=== PATIENT | male | born 2000 | race African-American/Black ===

== ENCOUNTER 2022-08-07 22:33 | Inpatient (IN) ==
--- NOTE | 2022-08-07 23:18 | Emergency Department Note ---
Impression & Plan Chest pain, Palpitations, Elevated CK, Elevated transaminase level ED Provider Note ED Provider Note NAME: JUANCARLOS QUICK AGE:21 SEX: Male : 2000 ARRIVES VIA: private vehicle INFORMANT: Patient ED PROVIDER(s): Taylor Leo DO CHIEF COMPLAINT: chest pain HPI: This is a 21-year-old male presents emergency department due to concern for worsening chest pain. Patient states he was seen and evaluated here last night, had an EKG performed, was given an injection of an anti-inflammatory and discharged home. He states he was told it was likely musculoskeletal as he had recent leg started going back to the gym again the beginning of the week. He states he was initially sore "everywhere" the beginning of the week however all of his other areas of muscular soreness resolved except for the left chest wall. He states he feels left chest wall is slightly bigger compared to the right and it is most tender along the edge of his sternum. Patient states yesterday the pain was milder and dull, today felt worse, more severe, and he had 1 episode where it radiated into his back in the area of his left scapula. Patient denies any radiation down the arm or up into the neck. He denies accompanying shortness of breath. Patient denies any recent fevers, chills, cough or other URI symptoms over the last month. No recent leg swelling, change in urine or stools, nausea or vomiting, or abdominal pain. PAST MEDICAL HISTORY:See Below PAST SURGICAL HISTORY:See Below FAMILY HISTORY:See Below SOCIAL HISTORY:See Below HOME MEDICATIONS:See Below ALLERGIES:See Below VITALS:See Below PHYSICAL EXAMINATION: GENERAL: alert, well appearing, well nourished, no distress, non-toxic EYE EXAM: normal conjunctiva, PERRL and EOM's grossly intact OROPHARYNX: no exudate, no erythema, lips, buccal mucosa, and tongue normal and mucous membranes are moist NECK: supple, no nuchal rigidity, no adenopathy, non-tender LUNGS: Clear to auscultation. Normal chest wall mechanics, no w/r/r HEART: no murmurs, S1 normal and S2 normal ABDOMEN: abdomen soft, non-tender, normo-active bowel sounds, no masses, no rebound or guarding. BACK: Back is symmetrical on inspection and there is no deformity, no midline tenderness, no CVA tenderness. SKIN: no rashes, petechiae, orbruising UPPER EXTREMITIES: upper extremities are grossly normal. FROM, nml pulses b/l. LOWER EXTREMITIES: No pitting edema. FROM, nml pulses b/l. NEURO EXAM: Normal sensorium, cranial nerves II-XII grossly intact, normal speech, no facial droop,nogross weakness of arms, no gross weakness of legs. Gross sensation intact. No ataxia. Vital Signs: reviewed and remarkable Differential Diagnosis: Differential diagnoses includes but is not limited to acute coronary syndrome, pericarditis, pulmonary embolus, aortic dissection, pneumonia, pneumothorax, musculoskeletal, shingles, esophageal. MEDICAL DECISION MAKING: Heart score 0 This is a 21-year-old male presents emergency department due to concern for worsening chest pain and intermittent palpitations. Labs drawn and sent, IV established, EKG performed and interpreted by me, and chest x-ray obtained and interpreted by me also. Patient's initial troponin and D-dimer negative. EKG reassuring and chest x-ray reassuring. Bedside echo performed by me reassuring without any pericardial effusion or obvious wall motion abnormality. No ectopy or dysrhythmia noted on telemetry while monitored. Patient's initial CK found to be elevated, as were transaminases. The other labs are reassuring. Patient given additional IV fluids and CK rechecked. Repeat CK found to be markedly elevated despite normal renal function. No recent URI or illness per his report. Due to elevated CK with accompanying abnormal transaminases, case discussed with hospitalist for additional evaluation and management. Patient had no abdominal pain, no history of liver dysfunction. We discussed possible additional imaging of the liver if transaminases remain elevated. COVID test added as a precaution. Consultation(s): 0932: Discussed with Dr. Fowler, hospitalist team. ER Treatment Provided: See below 0115: Patient updated on results thus far. Bedside echo performed. US echo: A limited bedside echo was performed by me using ultrasound machine. No obvious pericardial effusion. No obvious wall motion abnormalities. Grossly normal EF noted with EPSS < 7. 0832: Updated patient on repeat CK levels and need for additional inpatient evaluation and monitoring. Diagnostics Interpreted By Me: -ECG: Normal sinus rhythm at 71, normal axis, normal QRS and QTc, no acute ST/T wave changes noted -Cardiac Monitoring: An order was placed for continuous cardiac monitoring. The monitor shows a rate of 68 with normal sinus rhythm. -Laboratory studies: As stated above and show below. -Imaging studies: Chest: A single view study of the chest was reviewed and was negative for cardiomegaly, focal infiltrate, effusion, pulmonary edema, or wide mediastinum. Triage Nursing Note Reviewed Prior/Outside Records Reviewed -reviewed prior EKG Procedures: [] Critical Care: [] Past Med/Surg History Medical History No acute medical problems Surgical History No pertinent past surgical history Social History Smoking Status: Never smoker Preferred Language: Samoan Feels Safe at Home: Yes Allergies Allergies Allergy/AdvReac Type Severity Reaction Status Date / Time No Known Allergies Allergy Verified 08/07/22 22:56 Home Meds Home Medications Medication Instructions Recorded Confirmed calcium carbonate 200 mg calcium 400 mg PO DIRECTED PRN 08/07/22 08/07/22 (500 mg) chewable tablet (Tums) HEARTBURN/INDIGESTION/GI UPSET Results & Data (ED) Vital Signs Vital Signs - 24 hr 08/07/22 22:37 08/08/22 00:51 08/08/22 01:36 Temperature 36.4 C L Temperature Source Temporal Artery Scan Pulse Rate 92 H Pulse Rate [Left Finger] 67 72 Pulse Rhythm [Left Finger] Pulse Strength [Left Finger] Respiratory Rate 18 18 18 Respiratory Effort / Characteristics Respiratory Depth Normal Respiratory Pattern Blood Pressure 159/102 H Blood Pressure [Right Arm] 134/86 133/87 Blood Pressure Mean 121 Blood Pressure Mean [Right Arm] 102 102 Blood Pressure Position [Right Arm] Lying Lying Pulse Oximetry 99 98 97 Oxygen Delivery Method Room Air Room Air Room Air Oxygen Flow Rate Sepsis Recent Fever Within 48 Hours No Sepsis New/Unexplained Change in Mental Status N/A Sepsis Action Taken by Nursing No Action Required 08/08/22 04:15 08/08/22 04:15 08/08/22 06:00 Temperature Temperature Source Pulse Rate Pulse Rate [Left Finger] 71 62 Pulse Rhythm [Left Finger] Regular Regular Pulse Strength [Left Finger] Normal Normal Respiratory Rate 18 16 Respiratory Effort / Characteristics Non-Labored Spontaneous Non-Labored Spontaneous Respiratory Depth Normal Normal Respiratory Pattern Regular Regular Blood Pressure Blood Pressure [Right Arm] 125/85 125/76 Blood Pressure Mean Blood Pressure Mean [Right Arm] 98 92 Blood Pressure Position [Right Arm] Semi-fowlers Semi-fowlers Pulse Oximetry 99 99 96 Oxygen Delivery Method Room Air Room Air Room Air Oxygen Flow Rate 0 Sepsis Recent Fever Within 48 Hours Sepsis New/Unexplained Change in Mental Status Sepsis Action Taken by Nursing Laboratory Data 08/07/22 23:50 08/07/22 23:50 Lab Results 08/07/22 08/07/22 08/07/22 Range/Units 23:50 23:50 23:50 WBC 6.44 (4.8-10.8) K/ul RBC 4.60 L (4.70-6.10) M/uL Hgb 14.9 (14.0-18.0) g/dl Hct 41.8 L (42.0-52.0) % MCV 90.9 (80.0-100.0) fL MCH 32.4 (25.0-34.0) pg MCHC 35.6 (32.0-36.0) g/dL RDW Std Deviation 37.2 (36.4-46.3) fL RDW Coeff of Estela 11.2 L (11.5-14.5) % Plt Count 159 (130-400) K/uL MPV 12.7 H (9.4-12.4) fL Immature Gran % (Auto) 0.2 % Neut % (Auto) 61.5 % Lymph % (Auto) 28.7 % [place] % (Auto) 8.5 % Eos % (Auto) 0.8 % Baso % (Auto) 0.3 % Neut # (Auto) 3.96 (1.40-6.50) K/uL Lymph # (Auto) 1.85 (1.2-3.4) K/uL [place] # (Auto) 0.55 (0.11-0.59) K/uL Eos # (Auto) 0.05 (0-0.50) K/uL Baso # (Auto) 0.02 (0-0.2) K/uL Immature Gran # (Auto) 0.01 (0.01-0.20) K/uL D-Dimer 200 (0-500) ug/L FEU Sodium 143 (136-145) mmol/L Potassium 4.1 (3.5-5.1) mmol/L Chloride 104 (98-107) mmol/L Carbon Dioxide 32 (21-32) mmol/L Anion Gap 7 (3-11) BUN 15 (6-23) mg/dl Creatinine 1.16 (0.6-1.4) mg/dl Est Cr Clr Drug Dosing 109.6 ml/min Est GFR ( Amer) 103.0 ml/min Est GFR (Non-Af Amer) 88.9 ml/min BUN/Creatinine Ratio 12.9 (10-20) Glucose 85 (70-99(Fasting)) mg/dl Calcium 9.5 (8.5-10.1) mg/dl Magnesium 2.3 (1.7-2.4) mg/dl Total Bilirubin 0.7 (0.2-1.0) mg/dl AST 516 H (13-39) U/L ALT 155 H (7-52) U/L Alkaline Phosphatase 59 (34-104) U/L Total Creatine Kinase 928 H (30-223) U/L Troponin I High Sens 9.4 (0-20) pg/ml Total Protein 7.3 (6.0-8.3) gm/dl Albumin 4.4 (3.4-5.0) gm/dl Globulin 2.9 (2.5-4.0) gm/dl Albumin/Globulin Ratio 1.5 (0.9-2) TSH (0.300-4.500) uIu/ml 08/07/22 08/08/22 Range/Units 23:50 04:49 WBC (4.8-10.8) K/ul RBC (4.70-6.10) M/uL Hgb (14.0-18.0) g/dl Hct (42.0-52.0) % MCV (80.0-100.0) fL MCH (25.0-34.0) pg MCHC (32.0-36.0) g/dL RDW Std Deviation (36.4-46.3) fL RDW Coeff of Estela (11.5-14.5) % Plt Count (130-400) K/uL MPV (9.4-12.4) fL Immature Gran % (Auto) % Neut % (Auto) % Lymph % (Auto) % [place] % (Auto) % Eos % (Auto) % Baso % (Auto) % Neut # (Auto) (1.40-6.50) K/uL Lymph # (Auto) (1.2-3.4) K/uL [place] # (Auto) (0.11-0.59) K/uL Eos # (Auto) (0-0.50) K/uL Baso # (Auto) (0-0.2) K/uL Immature Gran # (Auto) (0.01-0.20) K/uL D-Dimer (0-500) ug/L FEU Sodium (136-145) mmol/L Potassium (3.5-5.1) mmol/L Chloride (98-107) mmol/L Carbon Dioxide (21-32) mmol/L Anion Gap (3-11) BUN (6-23) mg/dl Creatinine (0.6-1.4) mg/dl Est Cr Clr Drug Dosing ml/min Est GFR ( Amer) ml/min Est GFR (Non-Af Amer) ml/min BUN/Creatinine Ratio (10-20) Glucose (70-99(Fasting)) mg/dl Calcium (8.5-10.1) mg/dl Magnesium (1.7-2.4) mg/dl Total Bilirubin (0.2-1.0) mg/dl AST (13-39) U/L ALT (7-52) U/L Alkaline Phosphatase (34-104) U/L Total Creatine Kinase 59152 H (30-223) U/L Troponin I High Sens (0-20) pg/ml Total Protein (6.0-8.3) gm/dl Albumin (3.4-5.0) gm/dl Globulin (2.5-4.0) gm/dl Albumin/Globulin Ratio (0.9-2) TSH 1.521 (0.300-4.500) uIu/ml Administered Medications Sodium Chloride (Nss 1000ml) 1,000 mls @ 150 mls/hr IV .Q6H40M SAMANTHA Stop: 09/07/22 08:44 Last Admin: 08/08/22 08:59 Dose: 125 mls/hr Documented By: BRISA Discontinued Medications Acetaminophen (Ofirmev) 1,000 mg in 100 mls @ 400 mls/hr IV NOW STA Stop: 08/08/22 01:33 Last Infusion: 08/08/22 02:04 Dose: 0 mls/hr Documented By: Admin: 08/08/22 01:36 Dose: 400 mls/hr Documented By: OZIEL Famotidine (Pepcid 20mg Iv Push) 20 mg in 5 mls @ 2.5 mls/min IV NOW STA Stop: 08/08/22 01:20 Last Admin: 08/08/22 01:36 Dose: 2.5 mls/min Documented By: OZIEL Sodium Chloride (Nss 1000ml) 1,000 mls @ 999 mls/hr IV .Q1H1M ONE Stop: 08/08/22 02:58 Last Infusion: 08/08/22 03:27 Dose: 0 mls/hr Documented By: Admin: 08/08/22 02:07 Dose: 999 mls/hr Documented By: OZIEL Sodium Chloride (Nss 1000ml) 1,000 mls @ 999 mls/hr IV .Q1H1M ONE Stop: 08/08/22 04:25 Last Infusion: 08/08/22 04:44 Dose: 0 mls/hr Documented By: Admin: 08/08/22 03:32 Dose: 999 mls/hr Documented By: JONI Imaging Data Radiologist's Impression: Chest X-Ray 08/07/22 23:16 SINGLE VIEW CHEST CLINICAL HISTORY: Atypical chest pain. FINDINGS: An AP, portable, upright chest radiograph is compared to study dated 11/13/2021. The cardiomediastinal silhouette is unremarkable. The lungs and pleural spaces are clear. No pneumothorax is seen. The bony thorax is grossly intact. IMPRESSION: No active disease in the chest. ACT 112: Negative or not required by law. Electronically signed by: Italo Reyes M.D. 08/07/2022 11:53 PM Discharge Plan Visit Data Chief Complaint: Cardiac Assessment Stated Complaint: CHEST PAINS, SHARP PAINS, INCREASED HEART RATE ED Provider: Taylor Leo Discharge Problem: Chest pain, Palpitations, Elevated CK, Elevated transaminase level Forms Stand Alone Forms: [facility] [place] Prescriptions Prescriptions: No Action calcium carbonate [Tums] 200 mg calcium (500 mg) Tablet,Chewable 400 mg PO DIRECTED PRN (Reason: HEARTBURN/INDIGESTION/GI UPSET) Referrals Referrals: PCP,NO [Primary Care Provider] -
--- NOTE | 2022-08-07 23:54 | XRay Report ---
SINGLE VIEW CHEST CLINICAL HISTORY: Atypical chest pain. FINDINGS: An AP, portable, upright chest radiograph is compared to study dated 11/13/2021. The cardiom ediastinal silhouette is unremarkable. The lungs and pleural spaces are clear. No pneumothorax is see n. The bony thorax is grossly intact. IMPRESSION: No active disease in the chest. ACT 112: Negative or not required by law. Electronically signed by: Italo Reyes M.D. 08/07/2022 11:53 PM
[2022-08-08 00:17] LABS: Basophils # (auto) 0.02 K/uL (0-0.2); Basophils % (auto) 0.3 %; Eosinophils # (auto) 0.05 K/uL (0-0.50); Eosinophils % (auto) 0.8 %; Hematocrit (blood only) 41.8 % (42.0-52.0); Hemoglobin 14.9 g/dl (14.0-18.0); Immature Granulocytes # (auto) 0.01 K/uL (0.01-0.20); Immature Granulocytes % (auto) 0.2 %; Lymphocytes # (auto) 1.85 K/uL (1.2-3.4); Lymphocytes % (auto) 28.7 %; Mean Corpuscular Hemoglobin 32.4 pg (25.0-34.0); Mean Corpuscular Hgb Conc 35.6 g/dL (32.0-36.0); Mean Corpuscular Volume 90.9 fL (80.0-100.0); Mean Platelet Volume 12.7 fL (9.4-12.4); Monocytes # (auto) 0.55 K/uL (0.11-0.59); Monocytes % (auto) 8.5 %; Neutrophils # (auto) 3.96 K/uL (1.40-6.50); Neutrophils % (auto) 61.5 %; Platelet Count 159 K/uL (130-400); RDW Coefficient of Variation 11.2 % (11.5-14.5); RDW Standard Deviation 37.2 fL (36.4-46.3); White Blood Count 6.44 K/ul (4.8-10.8)
[2022-08-08 00:38] LABS: BUN Creatinine Ratio 12.9 (10-20); Calcium 9.5 mg/dl (8.5-10.1); Creatinine Clr Calc Pharmacy 109.6 ml/min; Est GFR (Non-African American) 88.9 ml/min; Potassium 4.1 mmol/L (3.5-5.1)
[2022-08-08 00:45] LABS: Troponin I High Sensitivity 9.4 pg/ml (0-20)
[2022-08-08 00:54] LABS: D Dimer 200 ug/L FEU (0-500)
[2022-08-08] MEDS ORDERED: ACETAMINOPHEN 1,000 MG/100 ML VIAL IV STA (01:19)
[2022-08-08] MEDS ORDERED: FAMOTIDINE 20MG IV PUSH 20 MG/5 ML SYR IV STA (01:19)
[2022-08-08 01:57] LABS: Albumin Globulin Ratio 1.5 (0.9-2); Albumin Level 4.4 gm/dl (3.4-5.0); Bilirubin,Total 0.7 mg/dl (0.2-1.0); Globulin 2.9 gm/dl (2.5-4.0); Magnesium 2.3 mg/dl (1.7-2.4); Total Protein 7.3 gm/dl (6.0-8.3)
[2022-08-08] MEDS ORDERED: SODIUM CHLORIDE 0.9% 1000ML 1,000 ML IV ONE ×2 (01:58→03:25)
[2022-08-08] MEDS: SODIUM CHLORIDE 0.9% 1000ML 1,000 ML IV SCH ×2 (08:59→17:08)
[2022-08-08] MEDS ORDERED: ONDANSETRON INJ 2 MG/ML 2 ML VIAL IV PRN (09:35)
[2022-08-08] MEDS ORDERED: ALUMINUM/MAGNESIUM SUSP 30 ML UDC PO PRN (09:35)
[2022-08-08] MEDS ORDERED: MAGNESIUM HYDROXIDE SUSP 30 ML UDC PO PRN (09:35)
[2022-08-08] MEDS ORDERED: ACETAMINOPHEN 325 MG TAB PO PRN (09:35)
--- NOTE | 2022-08-08 10:04 | History & Physical Report ---
Date of Service August 08, 2022 Assessment & Plan (1) Rhabdomyolysis: (2) Chest pain: (3) Elevated LFTs: Plan: Admit to telemetry Patient presenting for evaluation of left-sided chest pain, palpitations, generalized body aches. Patient recently restarted workout routine. CK 928 --> 32838 Likely rhabdomyolysis from recent work out AST 516, ALT 155. T. bili normal. No abdominal complaints. Check LUQ US and hepatitis panel. Chest pain likely musculoskeletal in nature. HS trop 9.4 --> 9.0. EKG without acute ST changes. Chest pain reproducible on exam. Trend troponin. Check echo. Generous IVF, trend CK and LFTs DVT PROPHYLAXIS SCDs, ambulate History of Present Illness Chief Complaint: Chest Pain Primary Care Provider: NO PCP 21 year old male without significant PMH who presents to the ED for evaluation of chest pain. Patient reports working out 5 days ago for the first time in a while. Patient reports that while working out, he reports that his chest felt tight. The following day, patient reports he had generalized body aches. Those have mostly resolved however left-sided chest pain and left axilla pain persisted. Patient reports associated palpitations and tachycardia. Patient seen in ED yesterday for similar complaints. Chest pain was reproducible on exam, EKG was unremarkable. Patient had significant improvement after IV Toradol. Patient was discharged home. Patient reports the pain returned however with associated palpitations and tachycardia. Patient then presented back to the ED for further evaluation. Patient denies associated shortness of breath, lightheadedness, dizziness, diaphoresis. Denies any other recent illness, fevers, chills. No abdominal pain, nausea, vomiting, diarrhea. Denies urinary symptoms. In the ED, total CK 928 --> 32,000. Initial HS troponin negative. AST and ALT elevated. Patient was given IVF, IV Tylenol, IV famotidine. Allergies Allergy/AdvReac Type Severity Reaction Status Date / Time No Known Allergies Allergy Verified 08/07/22 22:56 Home Medications Medication Instructions Recorded Confirmed Type calcium carbonate 200 mg calcium 400 mg PO DIRECTED PRN 08/07/22 08/07/22 History (500 mg) chewable tablet (Tums) HEARTBURN/INDIGESTION/GI UPSET Past Med/Surg History Medical History No acute medical problems Surgical History No pertinent past surgical history Social History (Updated 08/08/22 @ 10:58 by SHANTAL Wilson) Smoking Status: Never smoker Second Hand Exposure: No; Do You Dip or Chew Tobacco: No; Tobacco Cessation Education Requested by Patient: No Hx Alcohol Use: No Hx Substance Use: No Preferred Language: Amharic Communication Ability: Effective Casting Room Operator Required: No Beliefs That Will Affect Care: None Current Living Situation: Alone Other Information That Helps Us Care for You: No Feels Safe at Home: Yes Safety Concerns: Feels Safe At This Time Assistive Devices: None Review of Systems Review of Systems: ROS per HPI, all other systems reviewed and negative Physical Exam Constitutional: WD/WN, vitals as above Eyes: PERRL, conjunctivae normal, anicteric sclerae ENMT: external ear and nose normal, oropharynx normal Respiratory: normal respiratory effort, lungs clear to auscultation Cardiovascular: Rate/Rhythm: regular rate and regular rhythm Vessels: normal peripheral pulses Extremities: no edema Chest (Breasts): Additional Comments: left chest wall tender Gastrointestinal (Abdomen): normal bowel sounds, soft, nontender, no hepatosplenomegaly Musculoskeletal: no cyanosis or clubbing, extremities motor strength 5/5 Skin: no rashes, warm and dry Neurologic: PERRL, EOMI, accommodation nl, no face palsy, no dysarthria Psychiatric: A+Ox3, euthymic affect Results & Data Results & Data ([facility]) Vital Signs (Past 12 Hours) Vital Signs Temp Pulse Pulse Resp BP BP Pulse Ox 08/08/22 06:00 62 16 125/76 96 08/08/22 04:15 71 18 125/85 99 08/08/22 04:15 99 08/08/22 01:36 72 18 133/87 97 08/08/22 00:51 67 18 134/86 98 08/07/22 22:37 36.4 C L 92 H 18 159/102 H 99 O2 Del Method O2 Flow Rate 08/08/22 06:00 Room Air 08/08/22 04:15 Room Air 08/08/22 04:15 Room Air 0 08/08/22 01:36 Room Air 08/08/22 00:51 Room Air 08/07/22 22:37 Room Air Laboratory Results Short CBC 08/07/22 Range/Units 23:50 WBC 6.44 (4.8-10.8) K/ul Hgb 14.9 (14.0-18.0) g/dl Hct 41.8 L (42.0-52.0) % Plt Count 159 (130-400) K/uL BMP 08/07/22 23:50 Sodium 143 Potassium 4.1 Chloride 104 Carbon Dioxide 32 BUN 15 Creatinine 1.16 Glucose 85 Calcium 9.5 Cardiac Enzymes 08/07/22 08/08/22 Range/Units 23:50 04:49 Total Creatine Kinase 928 H 88323 H (30-223) U/L Liver Function 08/07/22 Range/Units 23:50 Total Bilirubin 0.7 (0.2-1.0) mg/dl AST 516 H (13-39) U/L ALT 155 H (7-52) U/L Alkaline Phosphatase 59 (34-104) U/L Albumin 4.4 (3.4-5.0) gm/dl Diagnostic Findings Chest X-Ray 08/07/22 23:16 SINGLE VIEW CHEST CLINICAL HISTORY: Atypical chest pain. FINDINGS: An AP, portable, upright chest radiograph is compared to study dated 11/13/2021. The cardiomediastinal silhouette is unremarkable. The lungs and pleural spaces are clear. No pneumothorax is seen. The bony thorax is grossly intact. IMPRESSION: No active disease in the chest. ACT 112: Negative or not required by law. Electronically signed by: Italo Reyes M.D. 08/07/2022 11:53 PM Supervising Physician Co-Signing Physician Notes 21-year-old male with no significant past medical history presented to the ED / with ongoing left-sided chest pain associated with generalized body achiness and occasional palpitation. Patient recently restarted his workout routine and reports drinking 2-3 shots of drink over the weekend. Patient denies any use of recreational drugs or tobacco or marijuana. On labs review, AST is elevated greater than ALT and CPK is significantly elevated. The patient's presentation could likely be due to rhabdomyolysis secondary to his extensive workout regimen aggravated by his alcohol intake. Patient received 2 L of IV fluid in the ED, will continue with IV fluid, trend CK. Will trend troponin which was negative initially, will obtain echo. We will trend liver enzymes and also obtain liver ultrasound. We will continue telemetry monitoring for the time being. Send toxicology screen. Hepatitis panel. Monitor and replete electrolytes. Upon examination: Patient on room air, NAD, heart/lung/abdomen examinations are fairly WNL. Rest of the examination as above. Left-sided chest pain reproducible. I have seen and examined the patient and have discussed the case with the provider above. I agree with the assessment and plan as stated.
[2022-08-08 11:03] LABS: Influenza A virus by PCR Negative (Neg); Influenza B virus by PCR Negative (Neg); RSV by PCR Negative (Neg); SARS CoV2 RNA(COVID-19) Ceph NEGATIVE (Negative)
--- NOTE | 2022-08-08 11:04 | Ultrasound Report ---
ABDOMINAL ULTRASOUND, RIGHT UPPER QUADRANT HISTORY: Acutely elevated LFTs elevated liver enzymes. COMPARISON: None. FINDINGS: Pancreas: The pancreas demonstrates a normal echotexture. Liver: Unremarkable. Gallbladder: No gallbladder wall thickening. No gallstones. CBD: 0.2 cm Right kidney: No hydronephrosis. IMPRESSION: No significant abnormality identified within the right upper quadrant. ACT 112: Negative or not required by law. Electronically signed by: Sunil Garland M.D. 08/08/2022 11:03 AM
--- NOTE | 2022-08-08 13:14 | Electrocardiogram Report ---
Test Reason : Blood Pressure : / mmHG Vent. Rate : 070 BPM Atrial Rate : 070 BPM P-R Int : 156 ms QRS Dur : 082 ms QT Int : 352 ms P-R-T Axes : 057 059 042 degrees QTc Int : 380 ms Normal sinus rhythm Normal ECG When compared with ECG of 07-AUG-2022 01:49, No significant change was found Confirmed by Miguel A Jessica ([id number]) on 08/08/2022 1:14:37 PM Referred By: NO PCP Confirmed By:Miguel A Jessica
[2022-08-08 16:25] LABS: Appearance Urine Clear (Clear); Bilirubin Urine Negative (Negative); Blood Urine Negative (Negative); Color Urine Yellow; Glucose Urine UA Negative (Negative); Ketones Urine Negative (Negative); Leukocyte Esterase Urine Negative (Negative); Nitrite Urine Negative (Negative); Protein Urine Negative (Negative); Specific Gravity Urine 1.005 (1.000-1.030); Urobilinogen Urine Negative (Negative); pH Urine 7.5 (4.5-7.5)
[2022-08-08 17:20] LABS: Amphetamines+Metham, Urine Neg (Neg); Barbiturates, Urine Neg (Neg); Benzodiazepine, Urine Neg (Neg); Cocaine, Urine Neg (Neg); MDMA (Ecstacy), Urine Neg (Neg); Methadone, Urine Neg (Neg); Opiate, Urine Neg (Neg); Phencyclidine, Urine Neg (Neg)
[2022-08-09] MEDS: SODIUM CHLORIDE 0.9% 1000ML 1,000 ML IV SCH ×3 (00:53→16:32)
[2022-08-09 05:57] LABS: HBSAG NON-REACTIVE (NON-REACTIVE); Hepatitis A Antibody IgM NON-REACTIVE (NON-REACTIVE); Hepatitis B Core Antibody IgM NON-REACTIVE (NON-REACTIVE)
[2022-08-09 07:28] LABS: BUN Creatinine Ratio 11.5 (10-20); Calcium 9.1 mg/dl (8.5-10.1); Creatinine Clr Calc Pharmacy 112.5 ml/min; Est GFR (African American) 106.3 ml/min; Est GFR (Non-African American) 91.8 ml/min; Potassium 4.1 mmol/L (3.5-5.1)
[2022-08-09 07:50] LABS: Albumin Globulin Ratio 1.4 (0.9-2); Albumin Level 3.7 gm/dl (3.4-5.0); Bilirubin,Total 0.6 mg/dl (0.2-1.0); Globulin 2.6 gm/dl (2.5-4.0); Magnesium 1.9 mg/dl (1.7-2.4); Phosphorus 4.8 mg/dl (2.5-4.9); Total Protein 6.3 gm/dl (6.0-8.3)
--- NOTE | 2022-08-09 10:33 | Electrocardiogram Report ---
Test Reason : Blood Pressure : / mmHG Vent. Rate : 057 BPM Atrial Rate : 057 BPM P-R Int : 158 ms QRS Dur : 084 ms QT Int : 380 ms P-R-T Axes : 071 065 038 degrees QTc Int : 369 ms Sinus bradycardia with with sinus arrhythmia RSR' or QR pattern in V1 suggests right ventricular conduction delay Borderline ECG When compared with ECG of 07-AUG-2022 23:37, No significant change Confirmed by Miguel A Jessica ([id number]) on 08/09/2022 10:32:54 AM Referred By: NO PCP Confirmed By:Miguel A Jessica
--- NOTE | 2022-08-09 10:45 | Electrocardiogram Report ---
Test Reason : Blood Pressure : / mmHG Vent. Rate : 063 BPM Atrial Rate : 063 BPM P-R Int : 176 ms QRS Dur : 088 ms QT Int : 372 ms P-R-T Axes : 054 074 047 degrees QTc Int : 380 ms Normal sinus rhythm with sinus arrhythmia Normal ECG When compared with ECG of 08-AUG-2022 12:49, (unconfirmed) Premature atrial complexes are no longer Present Confirmed by Miguel A Jessica ([id number]) on 08/09/2022 10:45:13 AM Referred By: NO PCP Confirmed By:Miguel A Jessica
--- NOTE | 2022-08-09 11:41 | Hospitalist Progress Note ---
Date of Service August 09, 2022 Assessment & Plan (1) Rhabdomyolysis: (2) Chest pain: (3) Elevated LFTs: Plan: Patient presenting for evaluation of left-sided chest pain, palpitations, generalized body aches. Patient recently restarted workout routine. Continue with telemetry monitoring CK 928 --> 09736-->22651; c/w ivf, labs incl cpk in AM Likely rhabdomyolysis from recent work out/accentuated by alcohol intake (AST > ALT; liver US and Hep panel wnl). Repeat lft in 2-4 weeks to document resolution/coordinate w/ pcp office ECHO reveiwed, wnl. Urine tox screen negative. Chest pain likely musculoskeletal in nature. trop trend neg; improving; EKG without acute ST changes. Chest pain reproducible on exam -- improving. c/w IVF, trend CK and LFTs Pt counselled about risks a/w alcohol use. DVT PROPHYLAXIS SCDs, ambulate Pt's mother jose miguel updated w/ permission from patient, discussed about liver injury from alcohol use/ways to avoid it/monitor it; muscle injury and echo results reviewed. She voiced understanding and was agreeable to plan of care. Admission and Anticipated Discharge Date Admission Date: August 08, 2022 Subjective Patient seen and examined patient as a follow-up of chest pain/rhabdomyolysis. Patient was lying in bed, sleeping, easily arousable, NAD, denies any new acute event overnight, reports eating okay/moving bowels okay/passing urine okay. Patient reports his left-sided chest pain getting better, has not needed pain medication. Patient denies any headache or dizziness or chest pain or belly pain or other review of symptoms. Physical Exam Physical Exam: GENERAL: Alert and oriented x3. NAD, on RA. HEENT: No pallor, no icterus. Pupils equal, round and reactive to light. Oral mucosa moist. NECK: No JVD, no neck masses. HEART: S1 and S2 heard. Regular rate and rhythm. No murmur, no gallop. Reproducible chest pain x left --- improved significantly. RESPIRATORY SYSTEM: Normal AP diameter. No accessory muscle use. No wheezing, no crackles. ABDOMEN: Soft, bowel sounds present, nontender, no distention. CENTRAL NERVOUS SYSTEM: No facial droop. Speech is clear. Obeys simple commands. Moves extremities. EXTREMITIES: No edema, no erythema seen. Results & Data Results & Data ([facility]) Vital Signs (Past 12 Hours) Vital Signs Temp Pulse Pulse Resp BP Pulse Ox O2 Del Method 08/09/22 11:04 36.7 C 81 16 127/74 98 Room Air 08/09/22 07:51 36.6 C 57 L 16 128/80 100 Room Air 08/09/22 07:00 47 L 08/09/22 02:58 36.4 C L 67 18 132/79 99 Room Air 08/09/22 00:43 72
[2022-08-10] MEDS: SODIUM CHLORIDE 0.9% 1000ML 1,000 ML IV SCH ×5 (00:04→18:47)
[2022-08-10 07:09] LABS: Hematocrit (blood only) 38.4 % (42.0-52.0); Hemoglobin 13.7 g/dl (14.0-18.0); Mean Corpuscular Hemoglobin 32.7 pg (25.0-34.0); Mean Corpuscular Hgb Conc 35.7 g/dL (32.0-36.0); Mean Corpuscular Volume 91.6 fL (80.0-100.0); Platelet Count 144 K/uL (130-400); RDW Standard Deviation 37.3 fL (36.4-46.3); Red Blood Count 4.19 M/uL (4.70-6.10); White Blood Count 5.04 K/ul (4.8-10.8)
[2022-08-10 07:35] LABS: BUN Creatinine Ratio 10.1 (10-20); Calcium 9.2 mg/dl (8.5-10.1); Creatinine Clr Calc Pharmacy 116.7 ml/min; Est GFR (African American) 111.1 ml/min; Est GFR (Non-African American) 95.8 ml/min; Potassium 4.1 mmol/L (3.5-5.1)
[2022-08-10 07:41] LABS: Albumin Globulin Ratio 1.4 (0.9-2); Albumin Level 3.8 gm/dl (3.4-5.0); Bilirubin,Total 0.7 mg/dl (0.2-1.0); Globulin 2.7 gm/dl (2.5-4.0); Phosphorus 5.2 mg/dl (2.5-4.9); Total Protein 6.5 gm/dl (6.0-8.3)
--- NOTE | 2022-08-10 10:00 | Electrocardiogram Report ---
Test Reason : Blood Pressure : / mmHG Vent. Rate : 063 BPM Atrial Rate : 063 BPM P-R Int : 160 ms QRS Dur : 084 ms QT Int : 370 ms P-R-T Axes : 076 069 044 degrees QTc Int : 378 ms Sinus rhythm with marked sinus arrhythmia Otherwise normal ECG When compared with ECG of 09-AUG-2022 05:20, No significant change was found Confirmed by Xavier Perez ([id number]) on 08/10/2022 9:59:48 AM Referred By: NO PCP Confirmed By:Xavier Perez
--- NOTE | 2022-08-10 15:43 | Hospitalist Progress Note ---
Date of Service August 10, 2022 Assessment & Plan (1) Rhabdomyolysis: (2) Chest pain: (3) Elevated LFTs: Plan: Patient presenting for evaluation of left-sided chest pain, palpitations, generalized body aches. Patient recently restarted workout routine. Continue with telemetry monitoring CK 928 --> 23011-->65706 --> 9568; c/w ivf, labs incl cpk in AM Likely rhabdomyolysis from recent work out/accentuated by alcohol intake (AST > ALT; liver US and Hep panel wnl). Repeat lft in 2-4 weeks to document resolution/coordinate w/ pcp office ECHO reveiwed, wnl. Urine tox screen negative. Chest pain likely musculoskeletal in nature. trop trend neg; chest pain improving; EKG without acute ST changes. Chest pain reproducible on exam -- improving. c/w IVF, trend CK and LFTs Pt counselled about risks a/w alcohol use. Pt advised alcohol abstinence. DVT PROPHYLAXIS SCDs, ambulate Pt's mother jose miguel updated w/ permission from patient, discussed about liver injury from alcohol use/ways to avoid it/monitor it; muscle injury and echo results reviewed. She voiced understanding and was agreeable to plan of care. Admission and Anticipated Discharge Date Admission Date: August 08, 2022 Subjective Patient seen and examined patient as a follow-up of chest pain/rhabdomyolysis. Patient was lying in bed, awake, NAD, denies any new acute event overnight, reports eating okay/moving bowels okay/passing urine okay. Patient reports his left-sided chest pain getting better, also reports some left side lower chest/abd pain w/ positional variation, none present at bedside exam. Patient denies any headache or dizziness or chest pain or belly pain or other review of symptoms. Physical Exam Physical Exam: GENERAL: Alert and oriented x3. NAD, on RA. HEENT: No pallor, no icterus. Pupils equal, round and reactive to light. Oral mucosa moist. NECK: No JVD, no neck masses. HEART: S1 and S2 heard. Regular rate and rhythm. No murmur, no gallop. Reproducible chest pain x left --- improved significantly. RESPIRATORY SYSTEM: Normal AP diameter. No accessory muscle use. No wheezing, no crackles. ABDOMEN: Soft, bowel sounds present, nontender, no distention. CENTRAL NERVOUS SYSTEM: No facial droop. Speech is clear. Obeys simple commands. Moves extremities. EXTREMITIES: No edema, no erythema seen. Results & Data Results & Data ([facility]) Vital Signs (Past 12 Hours) Vital Signs Temp Pulse Resp BP Pulse Ox O2 Del Method 08/10/22 15:25 36.8 C 62 16 137/79 100 Room Air
[2022-08-11] MEDS: SODIUM CHLORIDE 0.9% 1000ML 1,000 ML IV SCH ×2 (01:09→05:35)
--- NOTE | 2022-08-11 08:00 | Electrocardiogram Report ---
Test Reason : Blood Pressure : / mmHG Vent. Rate : 063 BPM Atrial Rate : 063 BPM P-R Int : 154 ms QRS Dur : 092 ms QT Int : 364 ms P-R-T Axes : 077 080 051 degrees QTc Int : 372 ms Normal sinus rhythm with sinus arrhythmia Anteroseptal ST elevation, most consistent with repolarization variant Normal ECG When compared with ECG of 10-AUG-2022 08:35, No significant change was found Confirmed by Xavier Perez ([id number]) on 08/11/2022 7:59:45 AM Referred By: NO PCP Confirmed By:Xavier Perez
[2022-08-11 09:35] LABS: Albumin Globulin Ratio 1.4 (0.9-2); Albumin Level 3.9 gm/dl (3.4-5.0); BUN Creatinine Ratio 11.9 (10-20); Bilirubin,Total 1.1 mg/dl (0.2-1.0); Calcium 9.4 mg/dl (8.5-10.1); Creatinine Clr Calc Pharmacy 125.9 ml/min; Est GFR (African American) 121.8 ml/min; Est GFR (Non-African American) 105.1 ml/min; Globulin 2.8 gm/dl (2.5-4.0); Potassium 3.9 mmol/L (3.5-5.1); Total Protein 6.7 gm/dl (6.0-8.3)
--- NOTE | 2022-08-11 11:20 | Discharge Summary ---
Discharge Summary Date of Service August 11, 2022 Notes For Next Care Provider Please repeat CMP and CPK in 3 days and again until normalized. Patient is advises to avoid exercise or vigorous activity until CK and LFTS improve. Recommend clearance through PCP. Medication Changes From Visit None Admission HPI Per Admitting Provider 21 year old male without significant PMH who presents to the ED for evaluation of chest pain. Patient reports working out 5 days ago for the first time in a while. Patient reports that while working out, he reports that his chest felt tight. The following day, patient reports he had generalized body aches. Those have mostly resolved however left-sided chest pain and left axilla pain persisted. Patient reports associated palpitations and tachycardia. Patient seen in ED yesterday for similar complaints. Chest pain was reproducible on exam, EKG was unremarkable. Patient had significant improvement after IV T oradol. Patient was discharged home. Patient reports the pain returned however with associated palpitations and tachycardia. Patient then presented back to the ED for further evaluation. Patient denies associated shortness of breath, lightheadedness, dizziness, diaphoresis. Denies any other recent illness, fevers, chills. No abdominal pain, nausea, vomiting, diarrhea. Denies urinary symptoms. In the ED, total CK 928 --> 32,000. Initial HS troponin negative. AST and ALT elevated. Patient was given IVF, IV Tylenol, IV famotidine. Admission Exam Per Admitting Provider Constitutional: WD/WN, vitals as above Eyes: PERRL, conjunctivae normal, anicteric sclerae ENMT: external ear and nose normal, oropharynx normal Respiratory: normal respiratory effort, lungs clear to auscultation Cardiovascular: Rate/Rhythm: regular rate and regular rhythm Vessels: normal peripheral pulses Extremities: no edema Chest (Breasts): Additional Comments: left chest wall tender Gastrointestinal (Abdomen): normal bowel sounds, soft, nontender, no hepatosplenomegaly Musculoskeletal: no cyanosis or clubbing, extremities motor strength 5/5 Skin: no rashes, warm and dry Neurologic: PERRL, EOMI, accommodation nl, no face palsy, no dysarthria Psychiatric: A+Ox3, euthymic affect Principal Dx & Hospital Course #1 = Principal Diagnosis (1) Rhabdomyolysis: (2) Chest pain: (3) Elevated LFTs: 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 Patient recently restarted workout routine. He was found to have significantly elevated CK as well as LFTs and diagnosed with rhabdomyolysis. His initial CK was 928, peaked at 32,398 and on day of discharge was 5431. His AST and ALT were also elevated at time of admission. His AST was 516 and down trended to 157. His ALT was 155 on admission and down trended to 98. He was treated aggressively with IV hydration. His symptoms gradually improved and overall on day of discharge patient was feeling well. He denied any current weakness or myalgias. He was tolerating regular diet. It is recommended he continue to drink 3 L of fluid daily for the next 3 days. He will have close outpatient follow-up and repeat CMP and CK levels. On admission patient did exhibit chest pain which is felt to be secondary to musculoskeletal in nature. An echocardiogram which was performed and unremarkable. His urine tox screen on admission was negative. Patient was counseled and advised to abstain from exercise or vigorous activity until cleared by primary care provider and all lab work and return to normal. He is also encouraged to abstain from alcohol at this time as well. On day of discharge he was hemodynamically stable and otherwise felt well. He had no acute concerns and all questions were answered. Discharge Exam Gen: WD/WN, NAD, A&O x3 HEENT: Normocephalic, atraumatic, conjunctivae moist, sclerae anicteric, mucous membranes moist. Lung: Clear to Auscultation bilaterally, no wheezes/rales/rhonchi Heart: Regular rate, regular rhythm, no murmurs, rubs, or gallops Abdomen: Soft, NT, ND +BS x 4 Extremities: No edema, strength 5/5 Skin: Warm, no rash, negative turgor. Updated Medication List Medication Instructions Recorded Confirmed Type calcium carbonate 200 mg calcium 400 mg PO DIRECTED PRN 08/07/22 08/07/22 History (500 mg) chewable tablet (Tums) HEARTBURN/INDIGESTION/GI UPSET Hospital Stay Data Consultations 08/08/22 09:26 ED Decision to Admit Stat Diagnostic Imagining Performed Chest X-Ray 08/07/22 23:16 SINGLE VIEW CHEST CLINICAL HISTORY: Atypical chest pain. FINDINGS: An AP, portable, upright chest radiograph is compared to study dated 11/13/2021. The cardiomediastinal silhouette is unremarkable. The lungs and pleural spaces are clear. No pneumothorax is seen. The bony thorax is grossly intact. IMPRESSION: No active disease in the chest. ACT 112: Negative or not required by law. Electronically signed by: Italo Reyes M.D. 08/07/2022 11:53 PM Liver Ultrasound 08/08/22 09:40 ABDOMINAL ULTRASOUND, RIGHT UPPER QUADRANT HISTORY: Acutely elevated LFTs elevated liver enzymes. COMPARISON: None. FINDINGS: Pancreas: The pancreas demonstrates a normal echotexture. Liver: Unremarkable. Gallbladder: No gallbladder wall thickening. No gallstones. CBD: 0.2 cm Right kidney: No hydronephrosis. IMPRESSION: No significant abnormality identified within the right upper quadrant. ACT 112: Negative or not required by law. Electronically signed by: Sunil Garland M.D. 08/08/2022 11:03 AM Pending Results Patient Have Any Pending Studies at Discharge: No Discharge Instructions Given to Patient (Per Discharging Provider) MEDICATION CHANGES: None SUMMARY OF TEST RESULTS: You were admitted to hospital secondary to rhabdomyolysis which is due to breakdown of muscle tissue and muscle protein into blood. This was caused by over exertion and new work out routine. Likely also due to underlying dehydration and possible alcohol use. Your liver function levels were also elevated as a result of this. You were treated with IV fluids and your lab work slowly started to improve. On day of discharge your muscle enzyme is still elevated; However, it is at a level we feel safe discharging you with close outpatient follow up. PENDING TEST RESULTS: None RECOMMENDATIONS FOR FOLLOW-UP: Please do not resume exercise or vigorous physical activity until cleared by your Primary Care Provider. You need repeat liver functions and muscle enzyme at follow up with Primary Care Provider. Please drink 3 L of water daily for next 3 days and then return to normal drinking habits. Encourage at least 80 ounces of water on a regular basis at baseline. Recommend to not use Alcohol due to muscle enzymes and liver functions being elevated. Please discuss this with your Primary Care Provider. Please limit Tylenol use to no more than, 2,000mg, per day. You may use Over the Counter Voltaren Gel as directed to site of pain. OTHER INSTRUCTIONS: Seek medical attention if you have: * temperature above 101 * chest pain or trouble breathing * abdominal pain, nausea, vomiting * diarrhea, dark stools or bloody stools * any unanswered questions or concerns Call 911 if symptoms are severe. Please take good care of yourself. It has been a pleasure taking care of you. Best of luck with your completion of College. Please take care of yourself. If you have any questions regarding your recent hospitalization please contact [facility] and request Shreyas Álvarez @ [phone]. Deja Urbano PA-C Total Time Total Time Spent Total Time Spent (In Minutes): 45 minutes Supervising Physician Co-Signing Physician Notes 21-year-old male with no significant past medical history presented to the ED 2/3 with ongoing left-sided chest pain associated with generalized body achiness and occasional palpitation. Patient recently restarted his workout routine and reports drinking 2-3 shots of drink over the weekend. Patient was managed for rhabdomyolysis, urinary toxicology screen was negative, patient was consulted avoiding alcohol use in future and vigorous activity for some time until evaluation by PCP. On exam patient was on room air, sitting up, heart/lung/abd exam wnl. Patient to follow-up with his PCP and get blood labs CMP and CPK level in 3 days upon discharge. I have seen and examined the patient and have discussed the case with the provider above. I agree with the assessment and plan as stated.
== END 2022-08-11 12:18 | disposition home or self-care (01) | DRG 558 ==
LOC: ED 22:33 → 2S 08-08 09:36 → 3W 08-10 00:13